=== PATIENT | female | born 1995 | race Caucasian/White ===

== ENCOUNTER 2016-12-05 09:31 | Emergency (ER) | payer BC, MEDICAID ==
--- NOTE | 2016-12-05 10:52 | EDM.PDOC ---
ED HPI NEURO - General Chief Complaint: Behavioral/Psych Stated Complaint: DEPRESSION Time Seen by Provider: 12/05/16 10:52 - History of Present Illness INITIAL COMMENTS - FREE TEXT/NARRATIVE: 21-year-old female presents emergency room with depression. Patient states her depression has been getting worse over the last 4-5 weeks. She delivered her first baby nearly 6 weeks ago. The patient has had some suicidal thoughts however does not have a plan and agrees not herself. She admits that she doesn't think she could hurt herself. Patient has no history of thyroid problems or any other medical problems, however has had some depression in the past. 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 Denies: fever, chills Respiratory: Reports: No Symptoms Cardiovascular: Reports: No symptoms GI/Abdominal: Reports: No symptoms : Reports: no symptoms ED EXAM, NEURO - Physical Exam Exam: See Below Exam Limited By: No limitations General Appearance: alert, no apparent distress, other (Vital signs stable alert oriented very cooperative) Respiratory/Chest: no respiratory distress, lungs clear, normal breath sounds Cardiovascular: regular rate, rhythm, no edema, no murmur Psychiatric: other (Is very cooperative answers questions appropriately). No: anxious, depressed mood, flat affect Course - Vital Signs Last Recorded V/S: Last Vital Signs Temp 36.2 C 12/05/16 10:01 Pulse 70 12/05/16 10:01 Resp 12 12/05/16 10:01 BP 103/68 12/05/16 10:01 Pulse Ox 100 12/05/16 10:01 - Re-Assessments/Exams Free Text/Narrative Re-Assessment/Exam: 12/05/16 11:42 The patient is 5 a half weeks with obvious depression she' s had some suicidal thoughts but does not have a plan and promises not herself. She is somewhat reluctant to starting medication at this point she is not breast -feeding. She scheduled to see her regular physician, Dr. Quezada on . She would like counseling at this point. Case discussed with [facility] who can see her at 1:30 this afternoon. The patient is eager to do this. Case also discussed with Dr. Quezada who will see the patient tomorrow if needed. Otherwise the followup should be okay. Medications will be held at this point pending further evaluation. Departure - Departure Time of Disposition: 11:44 Disposition: Home, Self-Care 01 Clinical Impression: Depression affecting , Forms: ED Department Discharge Additional Instructions: Return to the emergency room with any questions or problems. Return to the emergency room with any thoughts of harming yourself. Followup at [facility] services today at 1:30. You're scheduled to see Delores , a counselor. Call Dr. Quezada tomorrow to let her know how you are feeling. Dr. Quezada can see you tomorrow if needed otherwise we'll followup with you on as previously scheduled.
== END 2016-12-05 12:06 | disposition home or self-care (01) ==
LOC: JD.ED 09:31
CPT/HCPCS: 99283; 99284

== ENCOUNTER 2019-06-13 19:02 | Inpatient (IN) | payer BC ==
[2019-06-13] MEDS ORDERED: Nalbuphine 10 MG/1 ML Vial IVPUSH PRN (19:08)
[2019-06-13] MEDS ORDERED: Ondansetron 4 MG/2 ML SDV IVPUSH PRN (19:08)
[2019-06-13] MEDS ORDERED: Sodium Chloride 0.9% 10 ML Syringe FLUSH PRN (19:08)
[2019-06-13] MEDS ORDERED: Ampicillin 2 GM in Sodium Chloride 0.9% 100 ML IV ONE (19:08)
[2019-06-13] MEDS ORDERED: Oxytocin/Lactated Ringers 10 UNIT/1,000 ML BAG IV SCH ×2 (19:15)
[2019-06-13] MEDS: Lactated Ringers 1,000 ML IV SCH ×2 (20:15→21:37)
[2019-06-13] MEDS ORDERED: Bupivacaine/fentaNYL/NS 100 ML Bag EPIDUR PRN (20:15)
[2019-06-13] MEDS ORDERED: fentaNYL 100 MCG/2 ML SDV EPIDUR PRN (20:15)
[2019-06-13] MEDS ORDERED: ePHEDrine 50 MG/ML SDV IVPUSH PRN (20:15)
[2019-06-13] MEDS ORDERED: diphenhydrAMINE 50 MG/ML SDV IVPUSH PRN (20:15)
--- NOTE | 2019-06-13 20:46 | PCM.PREANE ---
Preanesthetic Assessment - Procedure Proposed Procedure: medina - Anesthesia/Transfusion/Family Hx Anesthesia History: Prior Anesthesia Without Reaction Family History of Anesthesia Reaction: No Transfusion History: No Prior Transfusion(s) Type of Transfusion Reactions: Reports: Unknown - Review of Systems General: No Symptoms Pulmonary: No Symptoms Cardiovascular: No Symptoms Gastrointestinal: Nausea Neurological: No Symptoms Other: Reports: Depression, Anxiety - Physical Assessment Vital Signs: 118/74 108 20 Height: 5 ft 8 in Weight: 107.093 kg ASA Class: 2 Mental Status: Alert & Oriented x3 Airway Class: Mallampati = 1 Dentition: Reports: Normal Dentition Thyro-Mental Finger Breadths: 3 Mouth Opening Finger Breadths: 3 ROM/Head Extension: Full Lungs: Clear to Auscultation, Normal Respiratory Effort Cardiovascular: Regular Rate, Regular Rhythm - Lab Values: Laboratory Last Values WBC 12.04 K/mm3 (3.98-10.04) H 06/13/19 19:26 RBC 4.11 M/mm3 (3.98-5.22) 06/13/19 19:26 Hgb 11.2 gm/dl (11.2-15.7) D 06/13/19 19:26 Hct 33.7 % (34.1-44.9) L 06/13/19 19:26 MCV 82.0 fl (79.4-94.8) D 06/13/19 19:26 MCH 27.3 pg (25.6-32.2) 06/13/19 19:26 MCHC 33.2 g/dl (32.2-35.5) 06/13/19 19:26 RDW Std Deviation 44.9 fL (36.4-46.3) 06/13/19 19:26 Plt Count 324 K/mm3 (182-369) D 06/13/19 19:26 MPV 10.0 fl (9.4-12.3) 06/13/19 19:26 Neut % (Auto) 77.7 % (34.0-71.1) H 06/13/19 19:26 Lymph % (Auto) 15.4 % (19.3-51.7) L 06/13/19 19:26 [place] % (Auto) 6.6 % (4.7-12.5) 06/13/19 19:26 Eos % (Auto) 0.2 (0.7-5.8) L 06/13/19 19:26 Baso % (Auto) 0.1 % (0.1-1.2) 06/13/19 19: Neut # (Auto) 9.37 K/mm3 (1.56-6.13) H 06/13/19 19:26 Lymph # (Auto) 1.85 K/mm3 (1.18-3.74) 06/13/19 19: [place] # (Auto) 0.79 K/mm3 (0.24-0.36) H 06/13/19 19: Eos # (Auto) 0.02 K/mm3 (0.04-0.36) L 06/13/19 19: Baso # (Auto) 0.01 K/mm3 (0.01-0.08) 06/13/19 19:26 - Allergies Allergies/Adverse Reactions: Allergies Allergy/AdvReac Type Severity Reaction Status Date / Time No Known Allergies Allergy Verified 06/13/19 19:08 - Blood Blood Available: No - Acknowledgements Anesthesia Type Planned: Epidural PreAnesthesia Questionnaire Cardiovascular History: Reports: None Respiratory History: Reports: Asthma (albuteral prn) Gastrointestinal History: Reports: GERD 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: : 2 (40 ) Para: 1 Psychiatric History: Reports: Anxiety, Depression - Past Surgical History Musculoskeletal Surgical History: Reports: ORIF Other Musculoskeletal Surgeries/Procedures:: ACL on the right knee - SUBSTANCE USE Smoking Status *Q: Never Smoker Tobacco Use Within Last Twelve Months: No Second Hand Smoke Exposure: No Days Per Week of Alcohol Use: 0 Recreational Drug Use History: No - HOME MEDS Home Medications: Home Meds Albuterol/Ipratropium [DuoNeb 3.0-0.5 MG/3 ML] 1 dose INH ASDIRECTED 12/05/16 [ History] Sertraline [Zoloft] 50 mg PO DAILY #30 tab 03/26/19 [Rx] - CURRENT (IN HOUSE) MEDS Current Meds: Current Medications Diphenhydramine HCl (Benadryl) 25 mg IVPUSH Q6H PRN PRN Reason: pruritis Ephedrine Sulfate (Ephedrine Sulfate) 5 mg IVPUSH ASDIRECTED PRN PRN Reason: Hypotension Fentanyl (Sublimaze) 100 mcg EPIDUR Q3H PRN PRN Reason: Pain Fentanyl/Bupivacaine HCl (Fentanyl/Bupivacaine/Ns 2 Mcg-0.125% 100 Ml) 100 ml EPIDUR ASDIRECTED PRN PRN Reason: Pain Ampicillin Sodium 1 gm/ Sodium (Chloride) 100 mls @ 200 mls/hr IV Q4H HAROON Lactated Ringer's (Ringers, Lactated) 1,000 mls @ 100 mls/hr IV ASDIRECTED HAROON Oxytocin/Lactated Ringer's (Pitocin In Lr 10 Units/1,000 Ml) 10 unit in 1,000 mls @ 500 mls/hr IV .CONTINUOUS HAROON Oxytocin/Lactated Ringer's (Pitocin In Lr 10 Units/1,000 Ml) 10 unit in 1,000 mls @ 12 mls/hr IV TITRATE HAROON; Protocol Nalbuphine HCl (Nubain) 10 mg IVPUSH Q2H PRN PRN Reason: Pain Ondansetron HCl (Zofran) 4 mg IVPUSH Q4H PRN PRN Reason: Nausea/Vomiting Sodium Chloride (Saline Flush) 10 ml FLUSH ASDIRECTED PRN PRN Reason: Keep Vein Open Discontinued Medications Ampicillin Sodium 2 gm/ Sodium (Chloride) 100 mls @ 200 mls/hr IV ONETIME ONE Stop: 06/13/19 19:37
--- NOTE | 2019-06-13 21:17 | PCM.SN ---
- Free Text/Narrative Note: 06/14/[id number] IV started 20 guage right hand. Flushes well. Secured. Olivia MIRROR PAINTER
--- NOTE | 2019-06-13 21:21 | PCM.HP.2 ---
H&P History of Present Illness - General Date of Service: 06/13/19 Source of Information: Patient History Limitations: Reports: No Limitations - History of Present Illness Initial Comments - Free Text/Narative: 23 year old [id number] presented at 7pm for induction of labor. Was having painful contractions and requested epidural. During epidural placement began feeling pressure. I was called by labor and delivery and told patient was 8 and changing quickly. Upon my arrival baby had delivered in bed 7 minutes before. PNC has been with myself without complications other than depression and GBS positive. 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: Psychiatric History: Reports: Anxiety, Depression - Past Surgical History Musculoskeletal Surgical History: Reports: ORIF Other Musculoskeletal Surgeries/Procedures:: ACL on the right knee Social & Family History - Family History Family Medical History: Noncontributory - Tobacco Use Smoking Status *Q: Never Smoker Second Hand Smoke Exposure: No - Caffeine Use Caffeine Use: Reports: Coffee Other Caffeine Use: tries to limit caffiene - Alcohol Use Days Per Week of Alcohol Use: 0 - Recreational Drug Use Recreational Drug Use: No H&P Review of Systems - Review of Systems: Review Of Systems: See Below General: Reports: No Symptoms HEENT: Reports: No Symptoms Pulmonary: Reports: No Symptoms Cardiovascular: Reports: No Symptoms Gastrointestinal: Reports: No Symptoms Genitourinary: Reports: No Symptoms Musculoskeletal: Reports: No Symptoms Skin: Reports: No Symptoms Psychiatric: Reports: No Symptoms Neurological: Reports: No Symptoms Hematologic/Lymphatic: Reports: No Symptoms Immunologic: Reports: No Symptoms Exam - Exam Exam: See Below - Vital Signs Weight: 107.093 kg - Exam General: Alert, Oriented, 4 HEENT: PERRLA, Hearing Intact, Mucosa Moist & [place], Nares Patent, Normal Nasal Septum, Posterior Pharynx Clear, Conjunctiva Clear, EOMI, EACs Clear, TMs Clear Neck: Supple, Trachea Midline, 2 Lungs: Clear to Auscultation, Normal Respiratory Effort Cardiovascular: Regular Rate, Regular Rhythm GI/Abdominal Exam: Normal Bowel Sounds, Soft, Non-Tender, No Organomegaly, No Distention, No Abnormal Bruit, No Mass, Pelvis Stable Rectal (Female) Exam: Normal Exam, Normal Rectal Tone Back Exam: Normal Inspection, Full Range of Motion, NT Extremities: Normal Inspection, Normal Range of Motion, Non-Tender, No Pedal Edema, Normal Capillary Refill Skin: Warm, Dry, Intact Neurological: Cranial Nerves Intact, Reflexes Equal Bilateral Neuro Extensive - Mental Status: Alert, Oriented x3, Normal Mood/Affect, Normal Cognition Neuro Extensive - Motor, Sensory, Reflexes: CN II-XII Intact, Normal Gait, Normal Reflexes Psychiatric: Alert, Normal Affect, Normal Mood - Patient Data Lab Results Last 24 hrs: Laboratory Results - last 24 hr 06/13/19 Range/Units 19:26 WBC 12.04 H (3.98-10.04) K/mm3 RBC 4.11 (3.98-5.22) M/mm3 Hgb 11.2 D (11.2-15.7) gm/dl Hct 33.7 L (34.1-44.9) % MCV 82.0 D (79.4-94.8) fl MCH 27.3 (25.6-32.2) pg MCHC 33.2 (32.2-35.5) g/dl RDW Std Deviation 44.9 (36.4-46.3) fL Plt Count 324 D (182-369) K/mm3 MPV 10.0 (9.4-12.3) fl Neut % (Auto) 77.7 H (34.0-71.1) % Lymph % (Auto) 15.4 L (19.3-51.7) % [place] % (Auto) 6.6 (4.7-12.5) % Eos % (Auto) 0.2 L (0.7-5.8) Baso % (Auto) 0.1 (0.1-1.2) % Neut # (Auto) 9.37 H (1.56-6.13) K/mm3 Lymph # (Auto) 1.85 (1.18-3.74) K/mm3 [place] # (Auto) 0.79 H (0.24-0.36) K/mm3 Eos # (Auto) 0.02 L (0.04-0.36) K/mm3 Baso # (Auto) 0.01 (0.01-0.08) K/mm3 Result Diagrams: 06/13/19 19:26 Problem List Initiated/Reviewed/Updated: Yes Orders Last 24hrs: Active Orders 24 hr Category Date Time Status Activity as Tolerated [RC] PFP Care 06/13/19 19:08 Active Communication Order [RC] ASDIRECTED Care 06/13/19 19:08 Active Heart Tones [RC] ASDIRECTED Care 06/13/19 19:08 Active Non Stress Test [RC] PER UNIT ROUTINE Care 06/13/19 19:08 Active Notify Provider [RC] ASDIRECTED Care 06/13/19 20:16 Active Notify Provider [RC] PFP Care 06/13/19 19:08 Active Notify Provider [RC] PRN Care 06/13/19 19:08 Active Peripheral IV Care [RC] . DIRECTED Care 06/13/19 19:08 Active Vital Signs [RC] PER UNIT ROUTINE Care 06/13/19 19:08 Active Regular Diet [DIET] Diet 06/13/19 Dinner Active RAPID PLASMA REAGIN,RPR [CHEM] Routine Lab 06/13/19 19:26 Received Ampicillin 1 gm Med 06/13/19 23:15 Active Sodium Chloride 0.9% [Normal Saline] 100 ml IV Q4H Bupivacaine/fentaNYL/NS [fentaNYL/Bupivacaine/NS 2 MCG- Med 06/13/19 20:15 Active 0.125% 100 ML] 100 ml EPIDUR ASDIRECTED PRN Lactated Ringers [Ringers, Lactated] 1,000 ml Med 06/13/19 19:15 Active IV ASDIRECTED Nalbuphine [Nubain] Med 06/13/19 19:08 Active 10 mg IVPUSH Q2H PRN Ondansetron [Zofran] Med 06/13/19 19:08 Active 4 mg IVPUSH Q4H PRN Oxytocin/Lactated Ringers [Pitocin in LR 10 Units/1,000 Med 06/13/19 19:15 Active ML] 10 unit in 1,000 ml IV .CONTINUOUS Oxytocin/Lactated Ringers [Pitocin in LR 10 Units/1,000 Med 06/13/19 19:15 Active ML] 10 unit in 1,000 ml IV TITRATE Sodium Chloride 0.9% [Saline Flush] Med 06/13/19 19:08 Active 10 ml FLUSH ASDIRECTED PRN diphenhydrAMINE [Benadryl] Med 06/13/19 20:15 Active 25 mg IVPUSH Q6H PRN ePHEDrine [ePHEDrine sulfate] Med 06/13/19 20:15 Active 5 mg IVPUSH ASDIRECTED PRN fentaNYL [Sublimaze] Med 06/13/19 20:15 Active 100 mcg EPIDUR Q3H PRN Electronic Heart Tones Ext w TOCO [WOMSER] Oth 06/13/19 19:08 Ordered Routine Electronic Heart Tones Internal [WOMSER] Per Unit Oth 06/13/19 19:08 Ordered Routine Peripheral IV Insertion Adult [OM.PC] Routine Oth 06/13/19 19:08 Ordered Resuscitation Status Routine Resus Stat 06/13/19 19:08 Ordered Medication Orders Diphenhydramine HCl (Benadryl) 25 mg IVPUSH Q6H PRN PRN Reason: pruritis Ephedrine Sulfate (Ephedrine Sulfate) 5 mg IVPUSH ASDIRECTED PRN PRN Reason: Hypotension Fentanyl (Sublimaze) 100 mcg EPIDUR Q3H PRN PRN Reason: Pain Fentanyl/Bupivacaine HCl (Fentanyl/Bupivacaine/Ns 2 Mcg-0.125% 100 Ml) 100 ml EPIDUR ASDIRECTED PRN PRN Reason: Pain Ampicillin Sodium 1 gm/ Sodium (Chloride) 100 mls @ 200 mls/hr IV Q4H HAROON Lactated Ringer's (Ringers, Lactated) 1,000 mls @ 100 mls/hr IV ASDIRECTED HAROON Oxytocin/Lactated Ringer's (Pitocin In Lr 10 Units/1,000 Ml) 10 unit in 1,000 mls @ 500 mls/hr IV .CONTINUOUS HAROON Oxytocin/Lactated Ringer's (Pitocin In Lr 10 Units/1,000 Ml) 10 unit in 1,000 mls @ 12 mls/hr IV TITRATE HAROON; Protocol Nalbuphine HCl (Nubain) 10 mg IVPUSH Q2H PRN PRN Reason: Pain Ondansetron HCl (Zofran) 4 mg IVPUSH Q4H PRN PRN Reason: Nausea/Vomiting Sodium Chloride (Saline Flush) 10 ml FLUSH ASDIRECTED PRN PRN Reason: Keep Vein Open Assessment/Plan Comment:: Term labor s/p precipitous delivery. Progressed rapidly to complete and delivery. Uncomplicated delivery.
--- NOTE | 2019-06-13 21:24 | PCM.SN ---
- Free Text/Narrative Note: Stage I - Patient presented for induction of labor in active labor. Progressed to complete rapidly during attempt at epidural placement. Stage II - Rapid at 901pm of viable male, 8#10oz, 8/9 APGARS prior to my arrival. Stage III - of intact placenta, 3vc at 910. No laceration. EBL 300.
[2019-06-13] MEDS ORDERED: Ampicillin 1 GM in Sodium Chloride 0.9% 100 ML IV SCH (23:15)
[2019-06-13] MEDS ORDERED: Witch Hazel Medicated Pads 40/Jar TOP PRN (23:45)
[2019-06-13] MEDS ORDERED: Ibuprofen 600 MG Tab PO PRN (23:45)
[2019-06-13] MEDS ORDERED: Hydrocortisone Acetate 25 MG Supp RECTAL PRN (23:45)
--- NOTE | 2019-06-14 08:08 | PCM.PNPP ---
- General Info Date of Service: 06/14/19 Functional Status: Reports: Pain Controlled - Review of Systems General: Reports: No Symptoms HEENT: Reports: No Symptoms Pulmonary: Reports: No Symptoms Cardiovascular: Reports: No Symptoms Gastrointestinal: Reports: No Symptoms Genitourinary: Reports: No Symptoms Musculoskeletal: Reports: No Symptoms Skin: Reports: No Symptoms Neurological: Reports: No Symptoms Psychiatric: Reports: No Symptoms - General Info Date of Service: 06/14/19 - Patient Data Vital Signs - Most Recent: Last Vital Signs Temp 36.6 C 06/13/19 23:54 Pulse 69 06/13/19 23:54 Resp 16 06/13/19 23:54 BP 122/67 06/13/19 23:54 Pulse Ox 98 06/13/19 23:54 Weight - Most Recent: 107.093 kg Lab Results - Last 24 Hours: Laboratory Results - last 24 hr 06/13/19 06/13/19 Range/Units 19:26 19:26 WBC 12.04 H (3.98-10.04) K/mm3 RBC 4.11 (3.98-5.22) M/mm3 Hgb 11.2 D (11.2-15.7) gm/dl Hct 33.7 L (34.1-44.9) % MCV 82.0 D (79.4-94.8) fl MCH 27.3 (25.6-32.2) pg MCHC 33.2 (32.2-35.5) g/dl RDW Std Deviation 44.9 (36.4-46.3) fL Plt Count 324 D (182-369) K/mm3 MPV 10.0 (9.4-12.3) fl Neut % (Auto) 77.7 H (34.0-71.1) % Lymph % (Auto) 15.4 L (19.3-51.7) % [place] % (Auto) 6.6 (4.7-12.5) % Eos % (Auto) 0.2 L (0.7-5.8) Baso % (Auto) 0.1 (0.1-1.2) % Neut # (Auto) 9.37 H (1.56-6.13) K/mm3 Lymph # (Auto) 1.85 (1.18-3.74) K/mm3 [place] # (Auto) 0.79 H (0.24-0.36) K/mm3 Eos # (Auto) 0.02 L (0.04-0.36) K/mm3 Baso # (Auto) 0.01 (0.01-0.08) K/mm3 RPR Non-reactive (NONREACTIVE) Med Orders - Current: Current Medications Hydrocortisone Acetate (Anucort-Hc) 25 mg RECTAL BID PRN PRN Reason: Hemorrhoid pain Ibuprofen (Motrin) 600 mg PO Q6H PRN PRN Reason: Mild pain or fever Witch Sania (Tucks) 1 pad TOP ASDIRECTED PRN PRN Reason: Pain Discontinued Medications Diphenhydramine HCl (Benadryl) 25 mg IVPUSH Q6H PRN PRN Reason: pruritis Ephedrine Sulfate (Ephedrine Sulfate) 5 mg IVPUSH ASDIRECTED PRN PRN Reason: Hypotension Fentanyl (Sublimaze) 100 mcg EPIDUR Q3H PRN PRN Reason: Pain Fentanyl/Bupivacaine HCl (Fentanyl/Bupivacaine/Ns 2 Mcg-0.125% 100 Ml) 100 ml EPIDUR ASDIRECTED PRN PRN Reason: Pain Ampicillin Sodium 2 gm/ Sodium (Chloride) 100 mls @ 200 mls/hr IV ONETIME ONE Stop: 06/13/19 19:37 Last Admin: 06/13/19 20:15 Dose: 200 mls/hr Ampicillin Sodium 1 gm/ Sodium (Chloride) 100 mls @ 200 mls/hr IV Q4H HAROON Lactated Ringer's (Ringers, Lactated) 1,000 mls @ 100 mls/hr IV ASDIRECTED HAROON Last Admin: 06/13/19 21:37 Dose: 100 mls/hr Oxytocin/Lactated Ringer's (Pitocin In Lr 10 Units/1,000 Ml) 10 unit in 1,000 mls @ 500 mls/hr IV .CONTINUOUS HAROON Last Admin: 06/13/19 21:05 Dose: 500 mls/hr Oxytocin/Lactated Ringer's (Pitocin In Lr 10 Units/1,000 Ml) 10 unit in 1,000 mls @ 12 mls/hr IV TITRATE HAROON; Protocol Nalbuphine HCl (Nubain) 10 mg IVPUSH Q2H PRN PRN Reason: Pain Ondansetron HCl (Zofran) 4 mg IVPUSH Q4H PRN PRN Reason: Nausea/Vomiting Sodium Chloride (Saline Flush) 10 ml FLUSH ASDIRECTED PRN PRN Reason: Keep Vein Open - Infant Interaction Support Person: Significant Other - Recovery Exam Fundal Tone: Firm Fundal Level: 1 Fingerbreadths Below Umbilicus Fundal Placement: Midline Lochia Amount: Scant, Small Lochia Color: Rubra/Red Perineum Description: Intact, Minimal Bruising/Swelling Episiotomy/Laceration: None Bladder Status: Voiding Urinary Elimination: Voided - Exam General: Alert, Oriented HEENT: Pupils Equal Neck: Supple Lungs: Clear to Auscultation, Normal Respiratory Effort Cardiovascular: Regular Rate, Regular Rhythm GI/Abdominal Exam: Normal Bowel Sounds, Soft, Non-Tender, No Organomegaly, No Distention, No Abnormal Bruit, No Mass, Pelvis Stable Extremities: Normal Inspection, Normal Range of Motion, Non-Tender, No Pedal Edema, Normal Capillary Refill Neurological: No New Focal Deficit Psy/Mental Status: Alert, Normal Affect, Normal Mood - Problem List Review Problem List Initiated/Reviewed/Updated: Yes - My Orders Last 24 Hours: My Active Orders 06/13/19 19:08 Heart Tones [RC] ASDIRECTED Non Stress Test [RC] PER UNIT ROUTINE Resuscitation Status Routine 06/13/19 23:45 Activity as Tolerated [RC] PER UNIT ROUTINE Vital Signs [RC] ASDIRECTED Hydrocortisone Acetate [Anucort-HC] 25 mg RECTAL BID PRN Ibuprofen [Motrin] 600 mg PO Q6H PRN Witch Sania [Tucks] 1 pad TOP ASDIRECTED PRN Assess Lochia [WOMSER] Per Unit Routine Assess Uterine Involution [WOMSER] Per Unit Routine Breast Pump [WOMSER] Per Unit Routine Heat Therapy [OM.PC] PRN Medication Administration Instruction [OM.PC] Routine Perineal Care [OM.PC] Per Unit Routine Sitz Bath [OM.PC] Per Unit Routine 06/14/19 23:45 Heat Therapy [OM.PC] PRN - Plan Plan:: Term labor s/p precipitous delivery. Progressed rapidly to complete and delivery. Uncomplicated delivery. Likely discharge Monday with baby discharge Monday.
[2019-06-15] MEDS: Acetaminophen 325 MG Tab PO PRN ×2 (03:33→10:50)
--- NOTE | 2019-06-15 08:38 | PCM.SN ---
- Free Text/Narrative Note: Post Progress Note PPD # 2 Subjective: Doing well overall. Ambulating without difficulty. Lochia minimal. Voiding without difficulty. Tolerating regular diet without nausea or vomiting. Pain controlled with oral medications. Bottlefeeding with minimal difficulty. Objective: Vitals: Vital Signs - 24 hr 06/14/19 06/14/19 06/14/19 10:17 15:20 20:17 Temperature 36.0 C 35.9 C 36.3 C Pulse, 63 58 L 59 L Peripheral Respiratory 18 18 14 Rate Blood Pressure 114/30 L 113/70 108/60 O2 Sat by Pulse 98 97 97 Oximetry Physical Exam General: Alert and oriented, no acute distress Lungs: Clear to auscultation bilaterally Heart: Regular rate and rhythm Abdomen: Soft, minimal appropriate tenderness, non-distended, fundus midline, nontender, and at the umbilicus Extremities: Trace edema in bilateral lower extremities to mid shins ASSESSMENT: 23-year-old female s/p normal precipitous vaginal delivery PPD #2, complicated by precipitous delivery in the setting of GBS status with 1 dose of ampicillin prior to delivery, asthma and depression PLAN: Doing well Bottlefeeding with minimal difficulty. Assist as needed Lochia minimal. Continue to monitor for appropriate lochia. Continue routine care Discharge home today Rafael Conley MD 8:37 AM 06/15/2019
--- NOTE | 2019-06-15 08:44 | PCM.DCSUM1 ---
Discharge Summary - Hospital Course Free Text/Narrative:: Stage I - Patient presented for induction of labor in active labor. Progressed to complete rapidly during attempt at epidural placement. Stage II - Rapid at 901pm of viable male, 8#10oz, 8/9 APGARS prior to my arrival. Stage III - of intact placenta, 3vc at 910. No laceration. EBL 300. HPI Initial Comments: Stage I - Patient presented for induction of labor in active labor. Progressed to complete rapidly during attempt at epidural placement. Stage II - Rapid at 901pm of viable male, 8#10oz, 8/9 APGARS prior to my arrival. Stage III - of intact placenta, 3vc at 910. No laceration. EBL 300. Brief History: Stage I - Patient presented for induction of labor in active labor. Progressed to complete rapidly during attempt at epidural placement. Stage II - Rapid at 901pm of viable male, 8#10oz, 8/9 APGARS prior to my arrival. Stage III - of intact placenta, 3vc at 910. No laceration. EBL 300. Diagnosis: Stroke: No - Discharge Data Discharge Date: 06/15/19 Discharge Disposition: Home, Self-Care 01 Condition: Good - Referral to Home Health Primary Care Physician: Anna Quezada MD - Discharge Diagnosis/Problem(s) (1) Asthma affecting , antepartum SNOMED Code(s): 613235731, 929302154 ICD Code: O99.519 - DISEASES OF THE RESP SYS COMP , UNSP TRIMESTER; J45.909 - UNSPECIFIED ASTHMA, UNCOMPLICATED Status: Acute Current Visit: Yes (2) Vaginal delivery SNOMED Code(s): 244994420 ICD Code: O80 - ENCOUNTER FOR FULL-TERM UNCOMPLICATED DELIVERY Status: Acute Current Visit: Yes (3) Precipitous delivery SNOMED Code(s): 677315631, 179808206 ICD Code: O62.3 - PRECIPITATE LABOR Status: Acute Current Visit: Yes (4) 40 weeks gestation of SNOMED Code(s): 12924572 ICD Code: Z3A.40 - 40 WEEKS GESTATION OF Status: Acute Current Visit: No (5) Depression affecting SNOMED Code(s): 39408408579294 ICD Code: O99.340 - OTH MENTAL DISORDERS COMPLICATING , UNSP TRIMESTER; F32.9 - MAJOR DEPRESSIVE DISORDER, SINGLE EPISODE, UNSPECIFIED Status: Acute Current Visit: No - Patient Summary/Data Complications: Precipitous vaginal delivery that was not attended by physician Consults: None Hospital Course: Sania Negron was admitted for elective induction of labor but was found to be in active labor on admission. On admission her cervix was dilated to 5-6 cm. She was GBS positive and received a total of 1 dose of ampicillin prior to delivery. She she had attempted placement of an epidural for anesthesia but during placement progressed to complete. She had spontaneous rupture of membranes with labor meconium stained fluid. She began pushing. On 06/13/2019 she had a precipitous normal vaginal delivery of a live male at 21:01. Apgars of 8 and 9. Weight of 3900 g (8 pounds 9.6 ounces). Her course was uneventful. Her pain was well controlled and she had minimal lochia. She was ambulating, tolerating a regular diet and voiding normally. She was bottlefeeding with minimal difficulty. She was afebrile and her hematocrit was 33.7 on admission. She desired to be discharged home on the morning of PPD #2. Her blood type is O+. - Patient Instructions Diet: Regular Diet as Tolerated Activity: Apply Ice, As Tolerated Activity, Other: Nothing in the vagina for 6 weeks Driving: May Drive Today Notify Provider of: Fever, Increased Pain, Swelling and Redness, Drainage, Nausea and/or Vomiting Other/Special Instructions: Please contact your physician's office if you have heavy vaginal bleeding enough to soak a pad in less than an hour for several hours. Monitor for any signs of an infection in the breasts with severe pain or redness of the breast. - Discharge Plan *PRESCRIPTION DRUG MONITORING PROGRAM REVIEWED*: Not Applicable *COPY OF PRESCRIPTION DRUG MONITORING REPORT IN PATIENT CORINNA: Not Applicable Home Medications: Home Meds Sertraline [Zoloft] 50 mg PO DAILY #30 tab 03/26/19 [Rx] Acetaminophen [Tylenol] 650 mg PO Q6H PRN tablet 06/15/19 [Rx] Hydrocortisone Acetate [Anucort-HC] 25 mg RECTAL BID PRN supp 06/15/19 [Rx] Ibuprofen [Motrin] 600 mg PO Q6H PRN tablet 06/15/19 [Rx] Molly Lui [Leyda] 1 pad TOP ASDIRECTED PRN pad 06/15/19 [Rx] Patient Handouts: Vaginal Delivery, Care After Referrals: Anna Quezada MD [Primary Care Provider] - (Follow-up in 6 weeks for routine visit or earlier as needed.) - Discharge Summary/Plan Comment DC Time >30 min.: No - Patient Data Vitals - Most Recent: Last Vital Signs Temp 36.3 C 06/14/19 20:17 Pulse 59 L 06/14/19 20:17 Resp 14 06/14/19 20:17 BP 108/60 06/14/19 20:17 Pulse Ox 97 06/14/19 20:17 Weight - Most Recent: 107.093 kg I&O - Last 24 hours: Intake & Output 06/14/19 06/15/19 06/15/19 22:59 06:59 14:59 Intake Total 0 Balance 0 Med Orders - Current: Current Medications Acetaminophen (Tylenol) 650 mg PO Q4H PRN PRN Reason: Pain Last Admin: 06/15/19 03:33 Dose: 650 mg Hydrocortisone Acetate (Anucort-Hc) 25 mg RECTAL BID PRN PRN Reason: Hemorrhoid pain Ibuprofen (Motrin) 600 mg PO Q6H PRN PRN Reason: Mild pain or fever Molly Lui (Jackcks) 1 pad TOP ASDIRECTED PRN PRN Reason: Pain Last Admin: 06/14/19 11:01 Dose: 1 container Discontinued Medications Diphenhydramine HCl (Benadryl) 25 mg IVPUSH Q6H PRN PRN Reason: pruritis Ephedrine Sulfate (Ephedrine Sulfate) 5 mg IVPUSH ASDIRECTED PRN PRN Reason: Hypotension Fentanyl (Sublimaze) 100 mcg EPIDUR Q3H PRN PRN Reason: Pain Fentanyl/Bupivacaine HCl (Fentanyl/Bupivacaine/Ns 2 Mcg-0.125% 100 Ml) 100 ml EPIDUR ASDIRECTED PRN PRN Reason: Pain Ampicillin Sodium 2 gm/ Sodium (Chloride) 100 mls @ 200 mls/hr IV ONETIME ONE Stop: 06/13/19 19:37 Last Admin: 06/13/19 20:15 Dose: 200 mls/hr Ampicillin Sodium 1 gm/ Sodium (Chloride) 100 mls @ 200 mls/hr IV Q4H HAROON Lactated Ringer's (Ringers, Lactated) 1,000 mls @ 100 mls/hr IV ASDIRECTED HAROON Last Admin: 06/13/19 21:37 Dose: 100 mls/hr Oxytocin/Lactated Ringer's (Pitocin In Lr 10 Units/1,000 Ml) 10 unit in 1,000 mls @ 500 mls/hr IV .CONTINUOUS HAROON Last Admin: 06/13/19 21:05 Dose: 500 mls/hr Oxytocin/Lactated Ringer's (Pitocin In Lr 10 Units/1,000 Ml) 10 unit in 1,000 mls @ 12 mls/hr IV TITRATE HAROON; Protocol Nalbuphine HCl (Nubain) 10 mg IVPUSH Q2H PRN PRN Reason: Pain Ondansetron HCl (Zofran) 4 mg IVPUSH Q4H PRN PRN Reason: Nausea/Vomiting Sodium Chloride (Saline Flush) 10 ml FLUSH ASDIRECTED PRN PRN Reason: Keep Vein Open
[2019-06-15 17:25] VITALS: BP 124/90; PULSE 74
== END 2019-06-15 18:50 | disposition home or self-care (01) | DRG 560 ==
LOC: JD.OB 19:02 → OBSVTOIN 21:01 → JD.OB 21:01
PROVIDERS: ADMIT Obstetrics & Gynecology; ATTEND Obstetrics & Gynecology
PROC: 10E0XZZ Delivery of Products of Conception, External Approach (ICD-10-PCS; principal; 2019-06-13)
DX: O62.3 Precipitate labor (principal); O99.52 Diseases of the respiratory system complicating childbirth; J45.909 Unspecified asthma, uncomplicated; Z37.0 Single live birth; O99.824 Streptococcus B carrier state complicating childbirth; O77.0 Labor and delivery complicated by meconium in amniotic fluid; O99.344 Other mental disorders complicating childbirth; F32.9 Major depressive disorder, single episode, unspecified; F41.9 Anxiety disorder, unspecified; O99.62 Diseases of the digestive system complicating childbirth; K21.9 Gastro-esophageal reflux disease without esophagitis; Z79.899 Other long term (current) drug therapy
CPT/HCPCS: 36415; 59025; 59409; 85025; 86592; A9270-GY; J0290; J2590; J7030; J7120

== ENCOUNTER 2020-06-24 10:14 | Day surgery (SDC) | payer BC, MEDICAID ==
--- NOTE | 2020-06-23 12:10 | PCM.PREANE ---
Preanesthetic Assessment - Procedure Proposed Procedure: EGD and Colonoscopy - Anesthesia/Transfusion/Family Hx Anesthesia History: Prior Anesthesia Without Reaction Family History of Anesthesia Reaction: No Transfusion History: No Prior Transfusion(s) Intubation History: Unknown - Review of Systems Pulmonary: No Symptoms (Asthma: uses Inhaler) Cardiovascular: Palpitations (associated with anxiety), Dyspnea on Exertion (related to deconditioning and asthma) Gastrointestinal: Constipation, Diarrhea Other: Reports: Easy Bleeding, Sinus Problem (seasonal allergies), Depression, Anxiety - Physical Assessment NPO Status Date: 06/23/20 Vital Signs: HR: Sat: Temp: B/P: Resp: Height: 1.73 m ASA Class: 3 Mental Status: Alert & Oriented x3 - Lab Values: All labs reviewed and noted and within acceptable ranges to proceed with scheduled procedure. - Allergies Allergies/Adverse Reactions: Allergies Allergy/AdvReac Type Severity Reaction Status Date / Time No Known Allergies Allergy Verified 06/13/19 19:08 - Anesthesia Plan Pre-Op Medication Ordered: None - Acknowledgements Anesthesia Type Planned: MAC Pt an Appropriate Candidate for the Planned Anesthesia: Yes Alternatives and Risks of Anesthesia Discussed w Pt/Guardian: Yes Pt/Guardian Understands and Agrees with Anesthesia Plan: Yes PreAnesthesia Questionnaire Cardiovascular History: Reports: None Respiratory History: Reports: Asthma (albuteral prn) Gastrointestinal History: Reports: GERD 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: Psychiatric History: Reports: Anxiety, Depression - Past Surgical History Musculoskeletal Surgical History: Reports: ORIF Other Musculoskeletal Surgeries/Procedures:: ACL on the right knee - HOME MEDS Home Medications: Home Meds Sertraline [Zoloft] 50 mg PO DAILY #30 tab 03/26/19 [Rx] Acetaminophen [Tylenol] 650 mg PO Q6H PRN tablet 06/15/19 [Rx] Hydrocortisone Acetate [Anucort-HC] 25 mg RECTAL BID PRN supp 06/15/19 [Rx] Ibuprofen [Motrin] 600 mg PO Q6H PRN tablet 06/15/19 [Rx] witch Bradley [Tucks] 1 pad TOP ASDIRECTED PRN pad 06/15/19 [Rx] - CURRENT (IN HOUSE) MEDS Current Meds: Current Medications Lactated Ringer's (Ringers, Lactated) 1,000 mls @ 125 mls/hr IV ASDIRECTED HAROON Stop: 06/24/20 23:00 Lidocaine/Sodium Bicarbonate (Buffered Lidocaine 1% In Ns 8.4%) 0.25 ml IDERM ONETIME PRN PRN Reason: Prior to IV Start Stop: 06/24/20 18:00 Sodium Chloride (Saline Flush) 10 ml FLUSH ASDIRECTED PRN PRN Reason: Keep Vein Open Stop: 06/24/20 18:00
[~2020-06-24 10:14] MED LIST: Lactated Ringers 1,000 ML IV SCH; Lidocaine 1%/Sod Bicarbonate in NS 8.4% 1 ML Syringe IDERM PRN; Sodium Chloride 0.9% 10 ML Syringe FLUSH PRN
[2020-06-24] MEDS ORDERED: Lidocaine 1% 4 ML ONE (11:00)
[2020-06-24] MEDS ORDERED: Propofol 200 MG/20 ML SDV ONE ×3 (11:00→12:02)
[2020-06-24] MEDS ORDERED: fentaNYL 100 MCG/2 ML SDV ONE ×2 (11:01→11:45)
[2020-06-24] MEDS ORDERED: Lidocaine 1% with EPINEPHrine 1:100,000 20 ML MDV ONE (11:21)
--- NOTE | 2020-06-24 11:39 | PCM.PREANE ---
Preanesthetic Assessment - Procedure Proposed Procedure: EGD with colonoscopy with right foot punch biopsy - Anesthesia/Transfusion/Family Hx Anesthesia History: Prior Anesthesia Without Reaction Family History of Anesthesia Reaction: No Transfusion History: No Prior Transfusion(s) Type of Transfusion Reactions: Reports: Unknown Intubation History: Unknown - Review of Systems General: No Symptoms Pulmonary: No Symptoms Cardiovascular: No Symptoms Gastrointestinal: No Symptoms Neurological: No Symptoms Other: Reports: Easy Bleeding, Sinus Problem (seasonal allergies), Depression, Anxiety - Physical Assessment NPO Status Date: 06/24/20 (greater than 8 hours) Vital Signs: Last Vital Signs Temp 36.4 C 06/24/20 10:10 Pulse 103 H 06/24/20 10:10 Resp 16 06/24/20 10:10 BP 110/75 06/24/20 10:10 Pulse Ox 96 06/24/20 10:10 Height: 5 ft 8 in Weight: 118.841 kg ASA Class: 2 Mental Status: Alert & Oriented x3 Airway Class: Mallampati = 3 Dentition: Reports: Normal Dentition Thyro-Mental Finger Breadths: 3 Mouth Opening Finger Breadths: 3 ROM/Head Extension: Full Lungs: Clear to Auscultation, Normal Respiratory Effort Cardiovascular: Regular Rate, Regular Rhythm - Allergies Allergies/Adverse Reactions: Allergies Allergy/AdvReac Type Severity Reaction Status Date / Time No Known Allergies Allergy Verified 06/23/20 14:38 - Anesthesia Plan Pre-Op Medication Ordered: None - Acknowledgements Anesthesia Type Planned: MAC Pt an Appropriate Candidate for the Planned Anesthesia: Yes Alternatives and Risks of Anesthesia Discussed w Pt/Guardian: Yes Pt/Guardian Understands and Agrees with Anesthesia Plan: Yes PreAnesthesia Questionnaire HEENT History: Reports: None Cardiovascular History: Reports: None Respiratory History: Reports: Asthma Gastrointestinal History: Reports: GERD Genitourinary History: Reports: UTI, Recurrent 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: Neurological History: Reports: None Psychiatric History: Reports: Anxiety, Depression Endocrine/Metabolic History: Reports: None Hematologic History: Reports: None Immunologic History: Reports: None Oncologic (Cancer) History: Reports: None Dermatologic History: Reports: Other (See Below) Other Dermatologic History: infected sebaceous cyst of axilla - Past Surgical History HEENT Surgical History: Reports: Oral Surgery Other HEENT Surgeries/Procedures: tooth extraction January 2019 Respiratory Surgical History: Reports: None GI Surgical History: Reports: None Female Surgical History: Reports: None Male Surgical History: Reports: None Endocrine Surgical History: Reports: None Neurological Surgical History: Reports: None Musculoskeletal Surgical History: Reports: ORIF Other Musculoskeletal Surgeries/Procedures:: ACL on the right knee, right arm surgery x 2 Oncologic Surgical History: Reports: None Dermatological Surgical History: Reports: None - SUBSTANCE USE Tobacco Use Status *Q: Never Tobacco User Recreational Drug Use History: No - HOME MEDS Home Medications: Home Meds Albuterol [Ventolin HFA] 1 - 2 puff INH Q4H PRN 06/23/20 [History] Cetirizine HCl [Zyrtec] 10 mg PO DAILY 06/23/20 [History] Clobetasol [Temovate 0.05% Oint] 1 dose TOP BID PRN 06/23/20 [History] Cyanocobalamin (Vitamin B-12) [Vitamin B-12] 1,000 mcg PO DAILY 06/23/20 [History] Mv-Min/Iron/Folic/Calcium/Vitk [Women's Multivitamin Tablet] 1 tab PO DAILY 06/23/20 [History] - CURRENT (IN HOUSE) MEDS Current Meds: Current Medications Lactated Ringer's (Ringers, Lactated) 1,000 mls @ 125 mls/hr IV ASDIRECTED HAROON Stop: 06/24/20 23:00 Last Admin: 06/24/20 10:55 Dose: 125 mls/hr Documented by: Lidocaine/Sodium Bicarbonate (Buffered Lidocaine 1% In Ns 8.4%) 0.25 ml IDERM ONETIME PRN PRN Reason: Prior to IV Start Stop: 06/24/20 18:00 Last Admin: 06/24/20 10:54 Dose: 0.25 ml Documented by: Sodium Chloride (Saline Flush) 10 ml FLUSH ASDIRECTED PRN PRN Reason: Keep Vein Open Stop: 06/24/20 18:00 Discontinued Medications Fentanyl (Sublimaze) Confirm Administered Dose 100 mcg .ROUTE .STK-MED ONE Stop: 06/24/20 11:02 Lidocaine HCl (Xylocaine-Mpf 1%) Confirm Administered Dose 4 mls @ as directed .ROUTE .STK-MED ONE Stop: 06/24/20 11:01 Lidocaine/Epinephrine (Xylocaine 1% With Epinephrine 1:100,000) Confirm Administered Dose 20 ml .ROUTE .STK-MED ONE Stop: 06/24/20 11:22 Propofol (Diprivan 20 Ml) Confirm Administered Dose 400 mg .ROUTE .STK-MED ONE Stop: 06/24/20 11:01
[2020-06-24] MEDS ORDERED: Lactated Ringers 1,000 ML ONE ×2 (11:42→12:08)
[2020-06-24] MEDS ORDERED: ePHEDrine 50 MG/ML SDV ONE (11:47)
[2020-06-24] MEDS ORDERED: Bacitracin Oint 15 GM Tube ONE (11:52)
--- NOTE | 2020-06-24 12:30 | PCM.OPNOTE ---
- General Post-Op/Procedure Note Date of Surgery/Procedure: 06/24/20 Operative Procedure(s): EGD and colonoscopy, excision of right foot mole Findings: 1. Atypical right foot mole 2. Gastritis 3. Gastric polyp 4. Irregular GE polyp 5. Irregular colon mucosa 6. Transverse colon polyp 7. Sigmoid colitis Pre Op Diagnosis: Atypical right foot mole, early satiety, bloating, diarrhea, constipation, blood in stool Post-Op Diagnosis: same Anesthesia Technique: [facility] [place] Primary Surgeon: Chikis Angel Anesthesia Provider: Angelo Ospina Pathology: 1. Mole right foot 2. Antrum biopsy 3. GE junction biopsies 4. Ascending and transverse colon biopsies 5. Descending and sigmoid colon biopsies 6. Transverse colon polyp Fluid Replacement, Intraop: 1,100 Output, Urine Amount: 0 EBL in mLs: 0 Complications: none apparent Condition: Good
--- NOTE | 2020-06-24 12:31 | PCM.POSTAN ---
POST ANESTHESIA ASSESSMENT - MENTAL STATUS Mental Status: Alert, Oriented - VITAL SIGNS Vital Signs: Last Vital Signs Temp 36.4 C 06/24/20 10:10 Pulse 103 H 06/24/20 10:10 Resp 16 06/24/20 10:10 BP 110/75 06/24/20 10:10 Pulse Ox 96 06/24/20 10:10 - RESPIRATORY Respiratory Status: Respiratory Rate WNL, Airway Patent, O2 Saturation Stable - CARDIOVASCULAR CV Status: Pulse Rate WNL, Blood Pressure Stable - GASTROINTESTINAL GI Status: No Symptoms - PAIN Pain Score: 0 - POST OP HYDRATION Hydration Status: Adequate & Stable - OBSERVATIONS Free Text/Narrative:: Routine transfer to recovery with handoff to RN. VSS, SV, MIRANDA, FAC, CTAB. No concerns at this time.
--- NOTE | 2020-06-24 12:34 | PCM.PRNOTE ---
- Free Text/Narrative Note: Operative Report Date of Procedure: June 24, 2020 Pre Op Diagnosis: Atypical right foot mole, early satiety, bloating, diarrhea, constipation, blood in stool Post-Op Diagnosis: same Operative Procedures: 1. Excision of atypical appearing right foot mole 2. EGD with biopsy 3. Colonoscopy to the cecum with biopsy Primary Surgeon: Chikis Angel MD Anesthesia Provider: Angelo Ospina CRNA Anesthesia Technique: MAC IV Fluid Replacement, Intraop: 1100cc crystalloid Output, Urine Amount: 0cc EBL in mLs: 5cc (for the excision of the pigmented skin lesion on the foot) Findings: 1. Atypical right foot mole 2. Gastritis 3. Gastric polyp 4. Irregular GE polyp 5. Irregular colon mucosa 6. Transverse colon polyp 7. Sigmoid colitis Specimens: 1. Mole right foot 2. Antrum biopsy 3. GE junction biopsies 4. Ascending and transverse colon biopsies 5. Descending and sigmoid colon biopsies 6. Transverse colon polyp Drain/Tubes: None Indication: The patient is a 24-year-old lady who presented to the clinic with symptoms of early satiety, abdominal bloating, diarrhea and constipation as well as blood in her bowel movements. The patient also has multiple pigmented lesions throughout her skin, specifically an irregular appearing mole on the medial portion of the right foot. The patient was consented for a diagnostic EGD and colonoscopy as well as excision of the mole on the right foot. Risks of bleeding, and infection with regard to the skin excision, and perforation with regard to the endoscopy procedures were discussed. The patient agreed to the risks and wished to proceed. Description of the procedure: The patient was taken back to the endoscopy suite, and placed in the left la teral decubitus position. A bite block was placed. The patient was sedated with MAC anesthesia. The patient was then turned in a more supine position and the right medial foot was prepped with chlorhexidine. 1% lidocaine with epinephrine was then inserted under the skin. A surgical timeout was performed. An elliptical incision was then made around the pigmented lesion measuring 1.8 cm x 0.7 cm. The skin was then reapproximated using interrupted 3-0 Prolene sutures. A dry dressing was applied. The patient was then returned to the left lateral decubitus position The Olympus video endoscope was inserted into the oropharynx and guided under direct vision into the esophagus, stomach, and duodenum. The duodenal bulb and second portion of the duodenum were unremarkable. The gastric antrum was inspected and cold biopsy forceps were used to take tissue samples for H. pylori. There was evidence of some gastritis in this area the scope was withdrawn to the stomach and retroflexed. There was no increased fluid, food or secretions in the upper gastrointestinal tract. There was one benign-appearing polyp in the body of the stomach, this was not removed due to its benign appearance. No erosions or ulcers were noted. The scope was withdrawn to the esophagus. A this point we noted some irregularity of the GE junction which was biopsied using a cold biopsy forceps in 4 quadrants. No specific Barretts esophagus changes were noted. The endoscope was then withdrawn. Next, anorectal examination was performed. No lesions, masses or hemorrhoids were noted externally or on palpation. The scope was placed into the rectum and advanced to cecum. Upon reaching the cecum, and the patients cecum was entered. There was moderate tortuosity of the colon requiring application of external abdominal pressure. The ileocecal valve was well visualized and the appendiceal orifice identified. At this point, the scope was slowly withdrawn, paying attention to the mucosa. The patient had good bowel prep, 85-90% of the mucosa was visible. Irregularity of the mucosa was noted, with a mildly erythematous and edematous appearance. There were multiple white specks adherent or within the mucosa of the colon. Biopsies were taken with a cold biopsy forceps in the ascending, transverse, descending and sigmoid colon. A 4 mm flat polyp was noted in the transverse colon and removed with a jumbo cold biopsy forceps in the rectum, scope was retroflexed and some hemorrhoidal tissue was noted. The scope was placed back in the lumen and excess air was aspirated. The scope was removed. The patient tolerated the procedure very well. Complications: None apparent Condition: The patient was transported to PACU in stable condition. Chikis Angel MD General Surgery
[2020-06-24 13:02] VITALS: BP 112/68; PULSE 81
== END 2020-06-24 13:15 | disposition home or self-care (01) ==
LOC: JD.SDS 10:14
PROVIDERS: ATTEND Surgery
DX: D22.71 Melanocytic nevi of right lower limb, including hip (principal); K29.50 Unspecified chronic gastritis without bleeding; K20.90 Esophagitis, unspecified without bleeding; D12.3 Benign neoplasm of transverse colon; K31.7 Polyp of stomach and duodenum; K52.9 Noninfective gastroenteritis and colitis, unspecified; Z79.899 Other long term (current) drug therapy; F32.9 Major depressive disorder, single episode, unspecified; F41.9 Anxiety disorder, unspecified; J45.909 Unspecified asthma, uncomplicated
CPT/HCPCS: 11421; 43239; 45380; A9270; J2001; J2704; J3010; J7120; 00813